=== PATIENT | male | born 1965 | race Caucasian/White ===

== ENCOUNTER 2016-06-19 02:41 | Emergency (ER) | payer OTHER ==
[~2016-06-19] VITALS: Ht 182.9 cm; Wt 104.3 kg
[~2016-06-19 02:41] MED LIST: ASPIR 8181 MG PO; CRESTOR 10MG10 MG PO; LIORESAL 10MG T10 MG PO; LOSARTAN POTAS100 MG PO; METFORMIN ER500 MG PO; MOTRIN 600 MG600 MG PO; NORFLEX100 MG PO; PERCOCET 325 MG1 TA2 PO; VOLTAREN75 MG PO
[2016-06-19] MEDS ORDERED: IBUPROFEN800 M1 PO (03:10)
[2016-06-19] MEDS ORDERED: BACLOFEN10 M1 PO (03:10)
--- NOTE | 2016-06-19 03:11 | ED UPPER/LOWER EXTREMITY COMPL ---
History of Present Illness General Chief Complaint: Upper Extremity Injury Stated Complaint: LEFT ARM/SHOULDER PAIN, WORK INJURY Source: patient, old records Exam Limitations: no limitations Vital Signs & Intake/Output Vital Signs & Intake/Output Vital Signs Date Time Temp Pulse Resp B/P Pulse O2 O2 Flow FiO2 Ox Delivery Rate 06/19 0330 98.9 99 18 140/91 96 Room Air 06/19 0311 Room Air Allergies Coded Allergies: NO KNOWN ALLERGIES (02/08/11) Reconcile Medications Aspirin (Ecotrin) 81 MG TABLET.DR 1 TAB PO DAILY HEART HEALTH (Reported) Losartan Potassium 100 MG TABLET 1 TAB PO DAILY HTN (Reported) Metformin Hydrochloride (Metformin ER) [address] 4 TAB PO DAILY BOARDERLINE DIABETIC (Reported) Rosuvastatin Calcium (Crestor) 10 MG TABLET 1 TAB PO DAILY HIGH CHOLESTROL ( Reported) Core Measure Meds Pre-Hospital aspirin Triage Note: TRIAGE: PATIENT TO ER FROM HOME REPORTING L SHOULDER "THINK PULLED MUSCLE" APPROX [id number] WHILE AT WORK (PATIENT IS [employer] TECHNICIAN). PT STATES "INVENTORYING A CAR, CLOSED DRIVERS DOOR AND FELT BURNING SENSATION/ TEAR MAYBE IN L SHOULDER." Triage Nurses Notes Reviewed? yes Onset: Just prior to arrival Duration: minute(s):, constant, continues in ED Timing: recent history Severity: moderate Pain/Injury Location: Left: Shoulder. Method of Injury: closing truck door Modifying Factors: Worsens With: movement. Associated Symptoms: GCS 15 since, stiffness HPI: After closing a truck door with his extended left arm prior to admission patient felt a sharp pain to the shoulder with limited range of motion nonradiating constant worse with movement. He denies other injury fever chills nausea vomiting diarrhea abdominal pain chest pain shortness breath headache dysuria rash bleeding change in sensory function. Past History Travel History Traveled to [place] past 21 day No Medical History Any Pertinent Medical History? see below for history Neurological: NONE EENT: NONE Cardiovascular: hypertension, hyperlipidemia Respiratory: NONE Gastrointestinal: NONE Hepatic: NONE Renal: NONE Musculoskeletal: NONE Psychiatric: NONE Endocrine: NONE Blood Disorders: NONE Cancer(s): NONE [employer] SALES AGENT/Reproductive: NONE Surgical History Surgical History: bilateral biceps repair Psychosocial History What is your primary language Hebrew Tobacco Use: Refused to answer Family History Hx Contributory? No Review of Systems Review of Systems Constitutional: Reports: no symptoms. EENTM: Reports: no symptoms. Respiratory: Reports: no symptoms. Cardiovascular: Reports: no symptoms. Gastrointestinal/Abdominal: Reports: no symptoms. Genitourinary: Reports: no symptoms. Musculoskeletal: Reports: see HPI, joint pain, muscle pain. Skin: Reports: no symptoms. Neurological/Psychological: Reports: no symptoms. Hematologic/Endocrine: Reports: no symptoms. Immunological: Reports: no symptoms. All Other Systems: Reviewed and Negative Physical Exam Physical Exam General Appearance: well developed/nourished, alert, awake, anxious, mild distress Head: atraumatic, normal appearance Eyes: Bilateral: normal appearance, PERRL, EOMI. Ears, Nose, Throat: normal pharynx, normal ENT inspection, hearing grossly normal Neck: normal inspection, supple Cardiovascular/Respiratory: regular rate/rhythm Peripheral Pulses: 4+ carotid (R), 4+ carotid (L) Back: normal inspection, normal range of motion Shoulder Left: normal inspection, tenderness (AC joint), soft tissue tenderness, limited range of motion Shoulder Right: normal range of motion, normal inspection Elbow Left: normal range of motion, normal inspection Elbow Right: normal range of motion, normal inspection Hand Left: normal inspection, normal range of motion Hand Right: normal inspection, normal range of motion Upper Extremity Reflexes: 2+: bicep (R), bicep (L). Leg Left: normal range of motion, normal inspection Leg Right: normal range of motion, normal inspection Hip Left: normal range of motion, normal inspection Hip Right: normal range of motion, normal inspection Knee Left: normal range of motion, normal inspection Knee Right: normal range of motion, normal inspection Foot Left: normal inspection, normal range of motion Foot Right: normal inspection, normal range of motion Lower Extremity Reflexes: 2+: knee (R), knee (L). Neurologic/Tendon: normal sensation, normal motor functions, normal tendon functions, responds to pain, no evidence tendon injury, no pulse deficit Skin: intact, normal color, warm/dry Lymphatic: no anterior cervical nivia Progress Differential Diagnosis: dislocation, sprain Plan of Care: NSAID, muscle relaxant Departure Departure Time of Disposition: 307 Disposition: HOME OR SELF CARE Condition: Stable Clinical Impression Primary Impression: Left shoulder strain Qualifiers: Encounter type: initial encounter Qualified Code: S46.912A - Strain of unspecified muscle, fascia and tendon at shoulder and upper arm level, left arm, initial encounter Secondary Impressions: Rotator cuff injury Qualifiers: Encounter type: initial encounter Laterality: left Qualified Code: S46.002A - Unspecified injury of muscle(s) and tendon(s) of the rotator cuff of left shoulder, initial encounter Referrals: LYNDA OLIVAS MD (PCP/Family) Departure Forms: Customer Survey Employee Industrial Accident General Discharge Information
[2016-06-19 03:30] VITALS: BP 140/91
== END 2016-06-19 03:31 ==
LOC: ERH 02:41
DX: S46.912A Strain of unspecified muscle, fascia and tendon at shoulder and upper arm level, left arm, initial encounter (principal); S46.002A Unspecified injury of muscle(s) and tendon(s) of the rotator cuff of left shoulder, initial encounter; X58.XXXA Exposure to other specified factors, initial encounter